=== PATIENT | female | born 1955 | race Two or more races ===

== ENCOUNTER → 2018-01-16 | Outpatient (CLI) | payer BC | END | disposition home or self-care (01) | LOC: HKI 13:19 | DX: M17.0 Bilateral primary osteoarthritis of knee (principal) | CPT/HCPCS: 73564; 73564-50 ==

== ENCOUNTER → 2018-02-02 | Outpatient (CLI) | payer BC | END | disposition home or self-care (01) | LOC: HKI 10:30 | DX: M17.0 Bilateral primary osteoarthritis of knee (principal) | CPT/HCPCS: 20610 ==

== ENCOUNTER → 2018-10-29 | Outpatient (CLI) | payer BC | END | disposition home or self-care (01) | LOC: HKI 09:45 | DX: M17.0 Bilateral primary osteoarthritis of knee (principal) | CPT/HCPCS: Z7500 ==

== ENCOUNTER → 2019-01-29 | Outpatient (CLI) | payer BC | END | disposition home or self-care (01) | LOC: HKI 12:57 | DX: Z01.818 Encounter for other preprocedural examination (principal) | CPT/HCPCS: Z7500 ==

== ENCOUNTER 2019-03-13 11:00 | Inpatient (IN) | payer BC ==
[~2019-03-13 11:00] MED LIST: CEFAZOLIN 2 GM/50 ML (PMX) 50 ML IVPB; HIP PAIN COCKTAIL VANCO INJ; LACTATED RINGER'S 1,000 ML IV*
[2019-03-13] MEDS: LANSOPRAZOLE 30 MG CAP PO (12:02)
[2019-03-13] MEDS: oxyCODONE (CR) 10 MG TAB [oxyCONTIN] PO (12:02)
[2019-03-13] MEDS: ONDANSETRON 4 MG INJ IV ×3 (12:03→21:38)
[2019-03-13] MEDS: DEXAMETHASONE 4 MG/ML 1 ML INJ IV (12:03)
[2019-03-13] MEDS ORDERED: ACETAMINOPHEN 500 MG TAB PO (12:30)
[2019-03-13] MEDS: LACTATED RINGER'S 1,000 ML IV* (12:30)
[2019-03-13] MEDS: CEFAZOLIN 2 GM/50 ML (PMX) 50 ML IVPB ×2 (12:30→21:36)
[2019-03-13] MEDS ORDERED: POLYMYXIN B 500000 UNIT INJ (12:32)
[2019-03-13] MEDS ORDERED: BACITRACIN 50000 UNITS INJ (12:34)
[2019-03-13] MEDS ORDERED: MIDAZOLAM 1 MG/ML 2 ML INJ (12:54)
[2019-03-13] MEDS ORDERED: TRANEXAMIC ACID 1GM/100ML(PMX) 200 ML (13:05)
[2019-03-13] MEDS: TRANEXAMIC ACID 1GM/100ML(PMX) 100 ML PRE-OP X1 IVPB ×2 (13:16→18:25)
[2019-03-13] MEDS ORDERED: CEFAZOLIN 1 GM INJ (13:21)
[2019-03-13] MEDS: KNEE PAIN COCKTAIL VANCO INJ (13:28)
[2019-03-13] MEDS: BACITRACIN 50000 UNITS INJ IRR (13:30)
[2019-03-13] MEDS: POLYMYXIN B 500000 UNIT INJ IRR (13:30)
[2019-03-13] MEDS: TRANEXAMIC ACID 1GM/100ML(PMX) 100 ML INTRA-OP X1 IVPB ×3 (13:31→18:25)
[2019-03-13] MEDS ORDERED: PROPOFOL 20 ML (14:08)
[2019-03-13] MEDS ORDERED: ONDANSETRON 4 MG INJ (14:08)
[2019-03-13] MEDS ORDERED: ROCURONIUM 50 MG INJ (14:08)
[2019-03-13] MEDS ORDERED: DEXAMETHASONE 4 MG/ML 5 ML INJ (14:08)
[2019-03-13] MEDS ORDERED: NEOSTIGMINE 3 MG/3 ML SYRINGE (14:46)
[2019-03-13] MEDS ORDERED: GLYCOPYRROLATE 0.4 MG INJ (14:46)
[2019-03-13] MEDS ORDERED: KETOROLAC 30 MG INJ (14:53)
[2019-03-13] MEDS ORDERED: CEFAZOLIN 2 GM/50 ML (PMX) 50 ML IVPB (15:00)
[2019-03-13] MEDS ORDERED: NACL 0.9% 3 ML SYG IV (15:00)
[2019-03-13] MEDS ORDERED: NALOXONE (0.4 MG/ML) INJ IV (15:00)
[2019-03-13] MEDS: HYDROmorphONE 1 MG/5 ML IV SYRINGE IV (15:18)
[2019-03-13] MEDS: FENTAnyl 50 MCG/ML VIAL IV (15:20)
[2019-03-13] MEDS ORDERED: OXYCODONE/ACETAMINOPHEN (5/325) TAB PO ×2 (15:30)
[2019-03-13] MEDS ORDERED: MEPERIDINE 25 MG INJ IV (15:30)
[2019-03-13] MEDS ORDERED: HYDROmorphONE 1 MG/5 ML IV SYRINGE IV ×2 (15:30)
[2019-03-13] MEDS ORDERED: KETOROLAC 30 MG INJ IV (15:30)
[2019-03-13] MEDS ORDERED: EPHEDrine SULFATE 50 MG/5 ML SYG IV (15:30)
[2019-03-13] MEDS ORDERED: ALBUTEROL 0.083% (NEB) 2.5 MG/3 ML AMP HHN (15:30)
[2019-03-13] MEDS ORDERED: LABETALOL HCL 20MG INJ IV (15:30)
[2019-03-13] MEDS ORDERED: ONDANSETRON 4 MG INJ IV (15:30)
[2019-03-13] MEDS ORDERED: MIDAZOLAM 1 MG/ML 2 ML INJ IV (15:30)
[2019-03-13] MEDS ORDERED: FENTAnyl 50 MCG/ML VIAL IV ×2 (15:30)
[2019-03-13] MEDS ORDERED: DIPHENHYDRAMINE 50 MG INJ IV (15:30)
[2019-03-13] MEDS ORDERED: hydrALAzine 20 MG INJ IV (15:30)
[2019-03-13] MEDS: DOCUSATE SODIUM 100 MG CAP PO (15:31)
[2019-03-13] MEDS: KETOROLAC 15 MG INJ IV (19:46)
[2019-03-13] MEDS ORDERED: POTASSIUM CHLORIDE (SR) 20 MEQ TAB PO (20:48)
[2019-03-13] MEDS: GABAPENTIN 100 MG CAP PO (21:59)
[2019-03-13] MEDS: oxyCODONE 5 MG TAB PO (22:34)
[2019-03-14] MEDS: ONDANSETRON 4 MG INJ IV ×2 (02:59→09:09)
[2019-03-14] MEDS: CEFAZOLIN 2 GM/50 ML (PMX) 50 ML IVPB ×2 (04:42→14:26)
[2019-03-14] MEDS: oxyCODONE 5 MG TAB PO ×4 (04:42→20:59)
[2019-03-14 05:01] LABS: ADD MAN DIFF? NO
[2019-03-14 05:10] LABS: HEMATOCRIT 35.1 % (37.0-47.0); HEMOGLOBIN 12.1 g/dl (12.0-16.0); LYMPHOCYTES # 0.9 10^3/ul (0.8-2.9); LYMPHOCYTES % 14.4 % (15.0-51.0); MEAN CORPUSCULAR HEMOGLOBIN 29.2 pg (29.0-33.0); MEAN CORPUSCULAR HGB CONC 34.5 g/dl (32.0-37.0); MEAN CORPUSCULAR VOLUME 84.8 fl (82.0-101.0); MEAN PLATELET VOLUME 9.6 fl (7.4-10.4); MONOCYTE # 0.1 10^3/ul (0.3-0.9); MONOCYTES % 1.7 % (0.0-11.0); NEUTROPHIL # 5.3 10^3/ul (1.6-7.5); NEUTROPHILS % 83.4 % (39.0-77.0); PLATELET COUNT 199 10^3/UL (140-415); RED BLOOD COUNT 4.14 10^6/ul (4.20-5.40); RED CELL DISTRIBUTION WIDTH 13.7 % (11.5-14.5)
[2019-03-14 05:10] LABS: WHITE BLOOD COUNT 6.4 10^3/ul (4.8-10.8)
[2019-03-14 05:50] LABS: ANION GAP 10 (5-13); BLOOD UREA NITROGEN 16 mg/dl (7-20); CALCIUM 9.1 mg/dl (8.4-10.2); CARBON DIOXIDE 27 mmol/L (21-31); CHLORIDE 102 mmol/L (97-110); CREATININE 0.51 mg/dl (0.44-1.00); Estimated GFR > 60 mL/min (>60); GLUCOSE 146 mg/dl (70-220); POTASSIUM 3.1 mmol/L (3.5-5.1); SODIUM 139 mmol/L (135-144)
[2019-03-14] MEDS: GABAPENTIN 100 MG CAP PO ×3 (09:08→20:58)
[2019-03-14] MEDS: ASPIRIN (EC) 81 MG TAB PO ×2 (09:08→20:58)
[2019-03-14] MEDS: CELECOXIB 100 MG CAP PO ×2 (09:09→20:58)
[2019-03-14] MEDS: KETOROLAC 15 MG INJ IV ×2 (10:52→16:44)
[2019-03-14] MEDS: LEVOTHYROXINE 100 MCG TAB PO (12:38)
[2019-03-14] MEDS: ATORVASTATIN 10 MG TAB PO (20:58)
[2019-03-14] MEDS ORDERED: ZOLPIDEM 5 MG TAB PO (21:00)
[2019-03-14] MEDS ORDERED: NON-FORMULARY/PATIENT OWN MED (Lovastatin* 10 MG) PO (21:00)
[2019-03-15] MEDS: oxyCODONE 5 MG TAB PO ×4 (03:37→16:15)
[2019-03-15 05:04] LABS: ADD MAN DIFF? NO
[2019-03-15 05:09] LABS: BASOPHILS % 0.2 % (0.0-2.0); HEMATOCRIT 31.4 % (37.0-47.0); HEMOGLOBIN 10.6 g/dl (12.0-16.0); LYMPHOCYTES % 39.2 % (15.0-51.0); MEAN CORPUSCULAR HEMOGLOBIN 29.7 pg (29.0-33.0); MEAN CORPUSCULAR HGB CONC 33.8 g/dl (32.0-37.0); MEAN PLATELET VOLUME 9.5 fl (7.4-10.4); MONOCYTE # 0.3 10^3/ul (0.3-0.9); MONOCYTES % 5.8 % (0.0-11.0); NEUTROPHIL # 2.7 10^3/ul (1.6-7.5); NEUTROPHILS % 53.8 % (39.0-77.0); PLATELET COUNT 171 10^3/UL (140-415); RED BLOOD COUNT 3.57 10^6/ul (4.20-5.40); RED CELL DISTRIBUTION WIDTH 14.3 % (11.5-14.5)
[2019-03-15 05:23] LABS: ANION GAP 8 (5-13); BLOOD UREA NITROGEN 20 mg/dl (7-20); CALCIUM 8.7 mg/dl (8.4-10.2); CARBON DIOXIDE 32 mmol/L (21-31); CHLORIDE 103 mmol/L (97-110); CREATININE 0.75 mg/dl (0.44-1.00); Estimated GFR > 60 mL/min (>60); GLUCOSE 113 mg/dl (70-220); POTASSIUM 3.3 mmol/L (3.5-5.1); SODIUM 143 mmol/L (135-144)
[2019-03-15] MEDS: PANTOPRAZOLE (EC) 40 MG TAB PO (06:38)
[2019-03-15] MEDS: LEVOTHYROXINE 100 MCG TAB PO (06:38)
[2019-03-15] MEDS ORDERED: LEVOTHYROXINE 100 MCG TAB PO (07:00)
[2019-03-15] MEDS: GABAPENTIN 100 MG CAP PO ×2 (08:56→12:02)
[2019-03-15] MEDS: CELECOXIB 100 MG CAP PO (08:56)
[2019-03-15] MEDS: ASPIRIN (EC) 81 MG TAB PO (08:56)
[2019-03-15] MEDS: AMLODIPINE 10 MG TAB PO (08:57)
[2019-03-15] MEDS: POTASSIUM CHLORIDE (SR) 20 MEQ TAB PO (12:53)
[2019-03-19] MEDS ORDERED: ERGOCALCIFEROL 50,000 UNIT CAP PO (09:00)
== END 2019-03-15 18:16 | DRG 470 ==
LOC: REC 11:00 → MS1 16:37
PROC: 0SRD069 Replacement of Left Knee Joint with Oxidized Zirconium on Polyethylene Synthetic Substitute, Cemented, Open Approach (ICD-10-PCS; principal; 2019-03-13 12:48)
DX: M17.12 Unilateral primary osteoarthritis, left knee (principal); E78.5 Hyperlipidemia, unspecified; I10 Essential (primary) hypertension; E03.9 Hypothyroidism, unspecified; H91.93 Unspecified hearing loss, bilateral; E66.9 Obesity, unspecified; Z68.33 Body mass index [BMI] 33.0-33.9, adult; K76.0 Fatty (change of) liver, not elsewhere classified; E87.6 Hypokalemia
CPT/HCPCS: 73560; 80048; 85025; 88304; 88311; 97110; 97116; 97161; 97530